=== PATIENT | male | born 1980 | race Caucasian/White ===

== ENCOUNTER 2018-09-17 17:22 | Inpatient (IN) ==
[2018-09-17] MEDS ORDERED: Aluminum/Magnesium/Simethacone Susp 30 ML UDC PO PRN (22:18)
[2018-09-18] MEDS: OXcarbazepine 150 MG Tablet PO SCH ×2 (13:04→20:37)
[2018-09-18] MEDS: clonazePAM 1 MG Tablet PO SCH ×2 (13:05→20:36)
[2018-09-18 13:41] LABS: Baso # (Auto) 0.1 th/mm3 (0.0-0.2); Baso % (Auto) 1.2 % (0.0-2.0); Eos # (Auto) 0.2 th/mm3 (0.0-0.4); Eos % (Auto) 2.9 % (0.0-4.0); Hematocrit 41.8 % (39.0-51.0); Hemoglobin 14.4 gm/dL (13.0-17.0); Lymph # (Auto) 1.7 th/mm3 (1.0-4.8); Lymph % (Auto) 22.6 % (9.0-44.0); Mean Corpuscular HGB Conc 34.6 % (32.0-36.0); Mean Corpuscular Hemoglobin 33.8 pg (27.0-34.0); Mean Corpuscular Volume 97.7 fL (80.0-100.0); Mean Platelet Volume 8.1 fL (7.0-11.0); Mono # (Auto) 0.6 th/mm3 (0.0-0.9); Mono % (Auto) 8.1 % (0.0-8.0); Neut # (Auto) 4.9 th/mm3 (1.8-7.7); Neut % (Auto) 65.2 % (16.0-70.0); Platelet Count 368 th/mm3 (150-450); Red Blood Count 4.28 mil/mm3 (4.50-5.90); Red Cell Distribution Width 12.8 % (11.6-17.2); White Blood Count 7.5 th/mm3 (4.0-11.0)
[2018-09-18 14:00] LABS: Albumin 3.2 g/dL (3.4-5.0); Anion Gap 6 meq/L (5-15); Aspartate Aminotransferase 69 U/L (15-37); Blood Urea Nitrogen 17 mg/dL (7-18); Calcium 8.5 mg/dL (8.5-10.1); Carbon Dioxide 30.3 meq/L (21.0-32.0); Chloride 105 meq/L (98-107); Glomerular Filtration Rate 71 mL/min (>89); Glucose,Random 102 mg/dL (74-106); Potassium 4.4 meq/L (3.5-5.1); Sodium 141 meq/L (136-145)
[2018-09-18 14:04] LABS: Alanine Aminotransferase 108 U/L (12-78); Alkaline Phosphatase 74 U/L (45-117); Total Protein 7.2 g/dL (6.4-8.2)
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
[2018-09-19] MEDS: Acetaminophen 325 MG Tablet PO PRN ×2 (02:14→11:36)
[2018-09-19] MEDS: OXcarbazepine 150 MG Tablet PO SCH ×2 (08:06→20:53)
[2018-09-19] MEDS: clonazePAM 1 MG Tablet PO SCH ×2 (08:06→20:53)
--- NOTE | 2018-09-19 13:15 | P.PNPSY ---
Subjective Chief Complaint: Depression with suicide attempt Remarks: Patient seen for follow-up, chart reviewed, patient discussed with nursing staff ; we reviewed the patient's mood, thoughts, and behaviors from overnight and this morning. There is reports that the patient slept 8 hours overnight. He has remained mostly isolative to his room, quiet and cooperative with care. Medication compliant. He has denied suicidal or homicidal ideations. He has denied auditory or visual hallucinations. Nurse reports that interactions this morning resulted in acute agitation and anger control problems that seem to be triggered by the patient's misunderstanding or miss communication with nursing. Patient was seen at bedside after lunch and he was calm and quiet and appropriate with examiner. He expressed satisfaction with the restart of his Klonopin as well as the start of Trileptal for mood. He expressed insight that he needs to continue on a mood stabilizer to help with his mood stability as well as anger control. Patient reports that he is willing to stay through the weekend to ensure tolerability and efficacy from current medications. We discussed his substance use disorder and different discharge plans for treatment and the patient declines referrals to residential treatment or spiritual based programs due to his past experience in his own principal believes. The patient did request referral for outpatient individual counseling to address his anger control, anxiety, and substance use. The patient plans to return to the [place] area. Review of Systems All other systems reviewed negative except as stated in HPI Mental Status Examination Appearance: Appropriate Consciousness: Alert Orientation: x4 Motor Activity: Normal gait Speech: Unremarkable Language: Adequate Fund of Knowledge: Adequate Attention and Concentration: Adequate Memory: Unremarkable Mood: Sad, Anxious Affect: Irritable, Anxious Thought Process & Associations: Intact Thought Content: Appropriate Hallucination Type: None Delusion Type: None Suicidal Ideation: No Suicidal Plan: No Suicidal Intention: No Homicidal Ideation: No Homicidal Plan: No Homicidal Intention: No Insight: Fair Judgment: Impulsive Assessment and Plan - Plan Plan: 09/18/2018: Initial treatment plan 1. Continue with admission to inpatient psychiatry at [facility]; convert to voluntary/competent legal status. 2. Routine unit precautions. 3. Comfort medications ordered for as needed treatment of constipation, heartburn, diarrhea, and mild pain. 4. Hydroxyzine 50mg po q6H prn anxiety/insomnia. 5. Restart Klonopin 1 mg twice a day for treatment of bipolar disorder and anxiety. 6. Start Trileptal 150 mg twice a day for treatment of bipolar disorder. 7. Repeat comprehensive metabolic panel as well as CBC due to abnormalities on his initial admission after the overdose. 8. Patient will participate in the unit programming to include group therapies , milieu therapy and recreational therapies. 9. Discharge planning: Patient will need a follow-up appointment with the [facility] in [place]. 09/19/2018: Good initial response to inpatient stabilization. Patient's suicidal ideations remain in remission and the patient is expressing improved hopefulness and helpfulness. He is satisfied with the start of a new mood stabilizer in the form of Trileptal. He is also satisfied with anxiety control with the Klonopin. We discussed his substance use disorder and different discharge plans for treatment and the patient declines referrals to residential treatment or spiritual based programs due to his past experience in his own principal believes. The patient did request referral for outpatient individual counseling to address his anger control, anxiety, and substance use. The patient plans to return to the [place] area. Anticipate discharge on Sunday. Justification for Continued Inpatient Stay: Patient remains an elevated risk for self-harm due to his recent suicide attempt and history of multiple past suicide attempts and will require further inpatient stabilization and preparation of a safe discharge plan. Moving patient to a less restrictive environment at this time may result in decompensation.
[2018-09-20] MEDS: clonazePAM 1 MG Tablet PO SCH (08:11)
[2018-09-20] MEDS: OXcarbazepine 150 MG Tablet PO SCH ×2 (08:11→21:31)
[2018-09-20] MEDS: Acetaminophen 325 MG Tablet PO PRN (08:14)
--- NOTE | 2018-09-20 13:38 | P.PNPSY ---
Subjective Chief Complaint: Depression with suicide attempt Remarks: Patient seen for follow-up, chart reviewed, patient discussed with nursing staff ; we reviewed the patient's mood, thoughts, and behaviors from overnight and this morning. There is reports that the patient was up during the night complaining of pain. Patient's affect was more dysphoric this morning and he had an episode of tearfulness complaints of anxiety as he discussed grief and loss of his girlfriend. Patient was given Atarax 50 mg this morning with good effect. Patient was seen at bedside and reports feeling better after talking about his grief. We discussed risks benefits side effects and alternative treatments for sleep and he agrees to start trazodone as a sleep aid. He has tolerated the start of Trileptal and agrees with continued titration. Review of Systems Musculoskeletal: Reports joint pain, Reports limited joint movement, Reports stiffness (Left shoulder) Psychiatric: Reports abnormal sleep pattern, Reports anxiety, Reports depression , Reports hopelessness, Denies hearing things others do not hear, Denies seeing things others do not see, Denies sensing things others do not sense, Denies thoughts of hurting/killing others, Denies thoughts of hurting/killing yourself Mental Status Examination Appearance: Appropriate Consciousness: Alert Orientation: x4 Motor Activity: Normal gait Speech: Unremarkable Language: Adequate Fund of Knowledge: Adequate Attention and Concentration: Adequate Memory: Unremarkable Mood: Sad, Anxious Affect: Irritable, Anxious Thought Process & Associations: Intact Thought Content: Appropriate Hallucination Type: None Delusion Type: None Suicidal Ideation: No Suicidal Plan: No Suicidal Intention: No Homicidal Ideation: No Homicidal Plan: No Homicidal Intention: No Insight: Fair Judgment: Impulsive Assessment and Plan - Assessment (1) Bipolar disorder current episode depressed Code(s): F31.30 - Bipolar disorder, current episode depressed, mild or moderate severity, unspecified Status: Acute (2) Stimulant abuse Code(s): F15.10 - Other stimulant abuse, uncomplicated Status: Acute (3) Anxiety disorder, unspecified Code(s): F41.9 - Anxiety disorder, unspecified Status: Acute - Plan Plan: 09/18/2018: Initial treatment plan 1. Continue with admission to inpatient psychiatry at [facility]; convert to voluntary/competent legal status. 2. Routine unit precautions. 3. Comfort medications ordered for as needed treatment of constipation, heartburn, diarrhea, and mild pain. 4. Hydroxyzine 50mg po q6H prn anxiety/insomnia. 5. Restart Klonopin 1 mg twice a day for treatment of bipolar disorder and anxiety. 6. Start Trileptal 150 mg twice a day for treatment of bipolar disorder. 7. Repeat comprehensive metabolic panel as well as CBC due to abnormalities on his initial admission after the overdose. 8. Patient will participate in the unit programming to include group therapies , milieu therapy and recreational therapies. 9. Discharge planning: Patient will need a follow-up appointment with the [facility] in [place]. 09/19/2018: Good initial response to inpatient stabilization. Patient's suicidal ideations remain in remission and the patient is expressing improved hopefulness and helpfulness. He is satisfied with the start of a new mood stabilizer in the form of Trileptal. He is also satisfied with anxiety control with the Klonopin. We discussed his substance use disorder and different discharge plans for treatment and the patient declines referrals to residential treatment or spiritual based programs due to his past experience in his own principal believes. The patient did request referral for outpatient individual counseling to address his anger control, anxiety, and substance use. The patient plans to return to the [facility]. Anticipate discharge on Sunday. 09/20/2018: Fair response to treatment, the patient's recent exacerbation of symptoms of grief are actually a sign of positive recovery but remain a significant risk for suicide. The patient's Klonopin history was confirmed by [employer] and it turns out his Klonopin dose was 0.5 mg twice a day therefore he will need to be tapered while inpatient. Continue inpatient stabilization and observation to further mitigate his risks of suicide. Increase Trileptal to 300 mg twice a day for treatment of bipolar disorder. Start trazodone 100 mg at bedtime as needed for insomnia. Decrease Klonopin to 0.5 mg twice a day for treatment of chronic anxiety per outpatient prescription. Discharge planning: The patient will need discharge follow-up with psychiatry as well as individual counseling for substance use. Recommend discontinuation of patient's out patient Adderall prescription upon discharge. Justification for Continued Inpatient Stay: The patient remains high risk for suicide based on severe psychosocial stressors , history of multiple suicide attempts and recent suicide attempt, and mood that is unstable.
[2018-09-20 17:17] VITALS: RESP 17
[2018-09-20] MEDS: clonazePAM 0.5 MG Tablet PO SCH (21:30)
[2018-09-20] MEDS: traZODone 100 MG Tablet PO PRN (21:31)
[2018-09-21] MEDS: clonazePAM 0.5 MG Tablet PO SCH ×2 (08:40→20:45)
[2018-09-21] MEDS: OXcarbazepine 150 MG Tablet PO SCH ×2 (08:40→20:45)
--- NOTE | 2018-09-21 14:42 | P.PNPSY ---
Subjective Chief Complaint: Depression with suicide attempt Remarks: Patient seen for follow-up, chart reviewed, patient discussed with nursing staff ; we reviewed the patient's mood, thoughts, and behaviors from overnight and this morning. Nurse reports the patient slept 8 hours overnight. The patient has tried to involve himself within the milieu but nursing notices that he is socially anxious and withdrawn at times. The patient reports that he slept better overnight with the addition of trazodone. He reports satisfactory control of his pain as well as his anxiety. The patient expressed increased motivation and hopefulness for his recovery with a plan for discharge on Sunday. Review of Systems All other systems reviewed negative except as stated in HPI Mental Status Examination Appearance: Appropriate Consciousness: Alert Orientation: x4 Motor Activity: Normal gait Speech: Unremarkable Language: Adequate Fund of Knowledge: Adequate Attention and Concentration: Adequate Memory: Unremarkable Mood: Sad, Anxious Affect: Irritable, Anxious Thought Process & Associations: Intact Thought Content: Appropriate Hallucination Type: None Delusion Type: None Suicidal Ideation: No Suicidal Plan: No Suicidal Intention: No Homicidal Ideation: No Homicidal Plan: No Homicidal Intention: No Insight: Fair Judgment: Impulsive Assessment and Plan - Assessment (1) Bipolar disorder current episode depressed Code(s): F31.30 - Bipolar disorder, current episode depressed, mild or moderate severity, unspecified Status: Acute (2) Stimulant abuse Code(s): F15.10 - Other stimulant abuse, uncomplicated Status: Acute (3) Anxiety disorder, unspecified Code(s): F41.9 - Anxiety disorder, unspecified Status: Acute - Plan Plan: 09/18/2018: Initial treatment plan 1. Continue with admission to inpatient psychiatry at [facility]; convert to voluntary/competent legal status. 2. Routine unit precautions. 3. Comfort medications ordered for as needed treatment of constipation, heartburn, diarrhea, and mild pain. 4. Hydroxyzine 50mg po q6H prn anxiety/insomnia. 5. Restart Klonopin 1 mg twice a day for treatment of bipolar disorder and anxiety. 6. Start Trileptal 150 mg twice a day for treatment of bipolar disorder. 7. Repeat comprehensive metabolic panel as well as CBC due to abnormalities on his initial admission after the overdose. 8. Patient will participate in the unit programming to include group therapies , milieu therapy and recreational therapies. 9. Discharge planning: Patient will need a follow-up appointment with the [facility] in [place]. 09/19/2018: Good initial response to inpatient stabilization. Patient's suicidal ideations remain in remission and the patient is expressing improved hopefulness and helpfulness. He is satisfied with the start of a new mood stabilizer in the form of Trileptal. He is also satisfied with anxiety control with the Klonopin. We discussed his substance use disorder and different discharge plans for treatment and the patient declines referrals to residential treatment or spiritual based programs due to his past experience in his own principal believes. The patient did request referral for outpatient individual counseling to address his anger control, anxiety, and substance use. The patient plans to return to the [facility]. Anticipate discharge on Sunday. 09/20/2018: Fair response to treatment, the patient's recent exacerbation of symptoms of grief are actually a sign of positive recovery but remain a significant risk for suicide. The patient's Klonopin history was confirmed by [facility] and it turns out his Klonopin dose was 0.5 mg twice a day therefore he will need to be tapered while inpatient. Continue inpatient stabilization and observation to further mitigate his risks of suicide. Increase Trileptal to 300 mg twice a day for treatment of bipolar disorder. Start trazodone 100 mg at bedtime as needed for insomnia. Decrease Klonopin to 0.5 mg twice a day for treatment of chronic anxiety per outpatient prescription. Discharge planning: The patient will need discharge follow-up with psychiatry as well as individual counseling for substance use. Recommend discontinuation of patient's out patient Adderall prescription upon discharge. 09/21/2018: Good response to treatment, the patient's mood and anxiety are improving with treatment and he is increasingly motivated for his recovery and discharged. Continue inpatient observation and stabilization as documented above with anticipate discharge on Sunday. Justification for Continued Inpatient Stay: Patient remains an elevated risk for self-harm and will require further inpatient stabilization and preparation of a safe discharge plan. Moving patient to a less restrictive environment at this time may result in decompensation.
[2018-09-22] MEDS: OXcarbazepine 150 MG Tablet PO SCH ×2 (08:58→20:24)
[2018-09-22] MEDS: clonazePAM 0.5 MG Tablet PO SCH ×2 (08:58→20:24)
--- NOTE | 2018-09-22 13:00 | P.PNPSY ---
Subjective Chief Complaint: Depression with suicide attempt Remarks: Reviewed electronic medical record and reviewed with nursing staff. Rounded with CHRIS Maradiaga. Patient continues to grieve the loss of his significant other. He states that his family has been very supportive and he plans to have his sister pick him up and then he will go to his brother's home in [facility]. He denies suicidal or homicidal ideations. He is sleeping and eating well. Engaging in conversation with other patients. Review of Systems All other systems reviewed negative except as stated in HPI Mental Status Examination Appearance: Appropriate Consciousness: Alert Orientation: x4 Motor Activity: Normal gait Speech: Unremarkable Language: Adequate Fund of Knowledge: Adequate Attention and Concentration: Adequate Memory: Unremarkable Mood: Sad, Anxious Affect: Irritable, Anxious Thought Process & Associations: Intact Thought Content: Appropriate Hallucination Type: None Delusion Type: None Suicidal Ideation: No Suicidal Plan: No Suicidal Intention: No Homicidal Ideation: No Homicidal Plan: No Homicidal Intention: No Insight: Fair Judgment: Impulsive Assessment and Plan - Assessment (1) Bipolar disorder current episode depressed Code(s): F31.30 - Bipolar disorder, current episode depressed, mild or moderate severity, unspecified Status: Acute (2) Stimulant abuse Code(s): F15.10 - Other stimulant abuse, uncomplicated Status: Acute (3) Anxiety disorder, unspecified Code(s): F41.9 - Anxiety disorder, unspecified Status: Acute - Plan Plan: 09/22/18 Continue current treatment plan. 09/18/2018: Initial treatment plan 1. Continue with admission to inpatient psychiatry at [facility]; convert to voluntary/competent legal status. 2. Routine unit precautions. 3. Comfort medications ordered for as needed treatment of constipation, heartburn, diarrhea, and mild pain. 4. Hydroxyzine 50mg po q6H prn anxiety/insomnia. 5. Restart Klonopin 1 mg twice a day for treatment of bipolar disorder and anxiety. 6. Start Trileptal 150 mg twice a day for treatment of bipolar disorder. 7. Repeat comprehensive metabolic panel as well as CBC due to abnormalities on his initial admission after the overdose. 8. Patient will participate in the unit programming to include group therapies , milieu therapy and recreational therapies. 9. Discharge planning: Patient will need a follow-up appointment with the [facility] in [place]. 09/19/2018: Good initial response to inpatient stabilization. Patient's suicidal ideations remain in remission and the patient is expressing improved hopefulness and helpfulness. He is satisfied with the start of a new mood stabilizer in the form of Trileptal. He is also satisfied with anxiety control with the Klonopin. We discussed his substance use disorder and different discharge plans for treatment and the patient declines referrals to residential treatment or spiritual based programs due to his past experience in his own principal believes. The patient did request referral for outpatient individual counseling to address his anger control, anxiety, and substance use. The patient plans to return to the [facility]. Anticipate discharge on Sunday. 09/20/2018: Fair response to treatment, the patient's recent exacerbation of symptoms of grief are actually a sign of positive recovery but remain a significant risk for suicide. The patient's Klonopin history was confirmed by [facility] and it turns out his Klonopin dose was 0.5 mg twice a day therefore he will need to be tapered while inpatient. Continue inpatient stabilization and observation to further mitigate his risks of suicide. Increase Trileptal to 300 mg twice a day for treatment of bipolar disorder. Start trazodone 100 mg at bedtime as needed for insomnia. Decrease Klonopin to 0.5 mg twice a day for treatment of chronic anxiety per outpatient prescription. Discharge planning: The patient will need discharge follow-up with psychiatry as well as individual counseling for substance use. Recommend discontinuation of patient's out patient Adderall prescription upon discharge. 09/21/2018: Good response to treatment, the patient's mood and anxiety are improving with treatment and he is increasingly motivated for his recovery and discharged. Continue inpatient observation and stabilization as documented above with anticipate discharge on Sunday. Justification for Continued Inpatient Stay: Moving patient to a less restrictive environment may result in his decompensation.
[2018-09-22] MEDS: traZODone 100 MG Tablet PO PRN (20:24)
[2018-09-23 06:20] VITALS: BP 142/89; PULSE 67; TEMP 98; O2SAT 99
[2018-09-23] MEDS: clonazePAM 0.5 MG Tablet PO SCH (08:32)
[2018-09-23] MEDS: OXcarbazepine 150 MG Tablet PO SCH (08:32)
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
== END 2018-09-23 14:15 | disposition home or self-care (01) ==
LOC: H270 21:25
PROVIDERS: ADMIT Psychiatry & Neurology Psychiatry; ATTEND Psychiatry & Neurology Psychiatry
CPT/HCPCS: Q0163